=== PATIENT | male | born 2000 | race Caucasian/White ===

== ENCOUNTER 2022-06-27 13:24 | Outpatient (CLI) | payer BC, SELFPAY ==
[2022-06-27 17:41] LABS: Chloride* 105 mmol/L (96-114)
[2022-06-27 17:42] LABS: Albumin* 4.5 g/dL (3.3-5.0); Potassium* 4.2 mmol/L (3.6-5.1); Sodium* 141 mmol/L (135-149)
[2022-06-27 17:44] LABS: Bilirubin Total* 1.2 mg/dL (0.1-1.5); Creatinine* 0.6 mg/dL (0.5-1.5); Estimated Glomerular Filt Rate 141 ml/min
[2022-06-27 17:45] LABS: Alanine Aminotransferase* 31 U/L (4-50); Alkaline Phosphatase* 48 U/L (40-150); Aspartate Amino Transferase* 25 U/L (12-35); Blood Urea Nitrogen* 12 mg/dL (5-24); Carbon Dioxide* 29 mmol/L (20-32); Glucose* 84 mg/dL (60-115); Total Protein* 7.1 g/dL (6.0-8.3)
[2022-06-27 17:46] LABS: Calcium* 9.2 mg/dL (8.4-10.6)
[2022-06-27 17:53] LABS: C Reactive Protein* < 0.5 mg/dL (0.5-1.0)
== END 2022-06-27 13:25 | disposition home or self-care (01) ==
PROVIDERS: Visit Provider Nurse Practitioner Family
DX: R53.83 Other fatigue (principal)
CPT/HCPCS: 80053; 86140